=== PATIENT | male | born 1955 | race Hispanic/Latino ===

== ENCOUNTER → 2017-03-18 | Outpatient (CLI) | payer BC ==
--- NOTE | 2017-03-19 17:11 | RAD ---
EXAM DESCRIPTION: Shoulder,Left 2 or More Views CLINICAL HISTORY: 61 years, Male, SHOULDER PN COMPARISON: None. FINDINGS: No acute fracture or dislocation. Mild acromioclavicular degenerative change . Two small ossific densities inferior to the glenoid, about 2 mm each, are probably posttraumatic. IMPRESSION: No acute fracture or dislocation. Mild degenerative change. Presumed posttraumatic changes inferior to the glenoid Electronically signed by: Sin Andrews MD 03/19/2017 5:10 PM CDT
== END | disposition home or self-care (01) ==
LOC: RAD 08:41
PROVIDERS: ATTEND Orthopaedic Surgery
DX: M25.512 Pain in left shoulder (principal)

== ENCOUNTER → 2017-03-23 | Outpatient (CLI) | payer BC ==
--- NOTE | 2017-03-24 08:55 | MRI ---
EXAM DESCRIPTION: MRI left shoulder CLINICAL HISTORY: Left shoulder pain COMPARISON: None. TECHNIQUE: Multiplanar, multisequence MR images of the left shoulder FINDINGS: Complete supraspinatus tendon tear retracted to the glenoid neck. Moderate to severe muscle volume loss with grade 2 fatty infiltration Near complete infraspinatus tendon tear. Majority of the tendon retracted to the glenohumeral joint level. A few thin posterior fibers intact preventing complete tendon retraction. Moderate to severe muscle volume loss and grade 2 fatty filtration. Teres minor tendon and muscle are normal Near complete subscapularis tendon tear with a thin strand remaining intact. The majority of the tendon is retracted to the glenoid level with moderate to severe muscle volume loss and grade 2 fatty infiltration Long head biceps tendon subluxation over the lesser tuberosity with tendinosis and interstitial partial tear from the upper bicipital groove to the labral anchor. Tear of the labral anchor and superior labrum with diffuse abnormal anterolateral signal throughout. The remainder of the labrum is intact No high-grade glenohumeral chondrosis or focal osteochondral lesion. Joint effusion with minimal synovitis. No intra-articular body. Severe acromioclavicular osteoarthritis with prominent marginal osteophytes. Lateral downsloping of the acromion with a prominent acromial spur IMPRESSION: Complete supraspinatus tendon tear and near complete infraspinatus and subscapularis tendon tear with associated tendon retraction and moderate to severe muscle volume loss and grade 2 fatty infiltration of all 3 muscles Long head biceps tendon subluxation with tendinosis and interstitial partial tear contiguous with degenerative tear labral anchor and superior labrum Electronically signed by: Manjit Cespedes MD 03/24/2017 8:55 AM CDT
== END | disposition home or self-care (01) ==
LOC: MRI 09:55
PROVIDERS: ATTEND Orthopaedic Surgery
DX: M75.122 Complete rotator cuff tear or rupture of left shoulder, not specified as traumatic (principal); X58.XXXA Exposure to other specified factors, initial encounter

== ENCOUNTER → 2017-10-17 | Outpatient (CLI) | payer BC ==
--- NOTE | 2017-10-18 07:49 | RAD ---
EXAM DESCRIPTION: Knee,Right Complete CLINICAL HISTORY: 62 years, Male, PAIN IN RIGHT KNEE COMPARISON: FINDINGS: No fracture or dislocation. Moderate narrowing medially and patellofemoral joint space. Small tibial spine spurs. Possible small joint effusion. IMPRESSION: No fracture or dislocation. Moderate degenerative change. Possible small joint effusion. Electronically signed by: Sin Andrews MD 10/18/2017 7:48 AM [facility]
--- NOTE | 2017-10-18 07:52 | RAD ---
EXAM DESCRIPTION: Pelvis CLINICAL HISTORY: 62 years Male, PAIN IN RIGHT HIP COMPARISON: None. FINDINGS: Single AP view the pelvis shows no displaced hip or other pelvic fracture. The hip joints are anatomically aligned. Mild degenerative calcifications are noted in both hips without significant joint space narrowing. The soft tissues are unremarkable. IMPRESSION: Mild degenerative changes in both hips, otherwise unremarkable exam. Electronically signed by: Ronny Mclaughlin MD 10/18/2017 7:[address] [facility]
== END | disposition home or self-care (01) ==
LOC: RAD 08:19
PROVIDERS: ATTEND Orthopaedic Surgery
DX: M25.561 Pain in right knee (principal); M25.551 Pain in right hip